=== PATIENT | male | born 1955 | race Hispanic/Latino ===

== ENCOUNTER 2023-07-03 11:01 | Observation (INO) | payer MEDICARE ==
[~2023-07-03] VITALS: Ht 152.4 cm; Wt 55.3 kg
[2023-07-03 11:30] LABS: HEMATOCRIT 36.4 % (42-54); MEAN CORPUSCULAR HEMOGLOBIN 30.5 pg (27.0-33.0); MEAN CORPUSCULAR HGB CONC 34.1 g/dL (32.0-36.0); MEAN CORPUSCULAR VOLUME 89.4 fL (79-99); PLATELET COUNT (AUTO) 143 K/uL (130-400); RED BLOOD CELL COUNT(AUTO) 4.07 MIL/uL (4.50-6.20); RED CELL DISTRIBUTION WIDTH 13.1 % (11.0-15.5); WHITE BLOOD COUNT (AUTO) 6.4 K/uL (4.8-10.8)
[2023-07-03 11:38] LABS: POTASSIUM 4.6 mmol/L (3.5-5.1)
[2023-07-03 11:43] LABS: ALBUMIN 4.1 g/dL (3.5-5.0); BILIRUBIN,TOTAL 0.5 mg/dL (0.2-1.0); TOTAL PROTEIN, SERUM 7.9 g/dL (6.0-8.3)
[2023-07-03 11:47] LABS: BASOPHILS % (MANUAL) 1 % (0-2); LYMPHOCYTES % (MANUAL) 12 % (22-44); MAN.DIFF COMMENT-IMPRESSION MANUAL DIFFERENTIAL; MONOCYTES % (MANUAL) 13 % (2-9); PLATELET MORPHOLOGY COMMENT ADEQUATE; SEGMENTED NEUTROPHILS % 74 % (40-70); TOTAL CELLS COUNTED 100
[2023-07-03] MEDS: 0.9%NACL 1000ML 1,000 ML IV ONE (11:49)
[2023-07-03] MEDS: METOCLOPRAMIDE 10 MG/2 ML VIAL IVP ONE (11:49)
[2023-07-03] MEDS: FAMOTIDINE 20MG VIAL IV ONE (11:49)
[2023-07-03] MEDS: ONDANSETRON 4MG INJ IVP ONE (11:49)
[2023-07-03 12:25] LABS: APPEARANCE,URINE CLEAR (CLEAR); BILIRUBIN,URINE NEGATIVE (NEGATIVE); COLOR,URINE LIGHT-YELLOW (YELLOW); GLUCOSE, URINE (UA) 500 mg/dL (NEGATIVE); KETONES,URINE NEGATIVE (NEGATIVE); LEUKOCYTE ESTERASE ,URINE 250 Leu/uL (NEGATIVE); NITRATE,URINE NEGATIVE (NEGATIVE); OCCULT BLOOD,URINE SMALL (NEGATIVE); PROTEIN,URINE 50 mg/dL (NEGATIVE); UROBILINOGEN,URINE 0.2 mg/dL (0.2-1.0)
[2023-07-03 12:26] LABS: ADD UA MICROSCOPIC YES
[2023-07-03 12:29] LABS: MUCUS,URINE RARE LPF (None Seen); SQUAMOUS EPITHELIAL CELL,UR RARE /HPF (0-2)
[2023-07-03] MEDS: CEFTRIAXONE 1G VIAL IVPB ONE (14:53)
[2023-07-03] MEDS: PANTOPRAZOLE 40 MG/VIAL IVP ONE (14:53)
[2023-07-03] MEDS ORDERED: ACETAMINOPHEN 325 MG TAB PO PRN (15:00)
[2023-07-03 15:10] LABS: HEMATOCRIT 34.1 % (42-54); MEAN CORPUSCULAR HEMOGLOBIN 31.3 pg (27.0-33.0); MEAN CORPUSCULAR HGB CONC 34.3 g/dL (32.0-36.0); MEAN CORPUSCULAR VOLUME 91.2 fL (79-99); PLATELET COUNT (AUTO) 125 K/uL (130-400); RED BLOOD CELL COUNT(AUTO) 3.74 MIL/uL (4.50-6.20); RED CELL DISTRIBUTION WIDTH 13.1 % (11.0-15.5); WHITE BLOOD COUNT (AUTO) 7.3 K/uL (4.8-10.8)
[2023-07-03 15:18] LABS: BASOPHILS # (AUTO) 0.02 K/uL (0.00-0.20); BASOPHILS % (AUTO) 0.3 % (0.0-5.0); EOSINOPHILS # (AUTO) 0.01 K/uL (0.00-0.70); EOSINOPHILS % (AUTO) 0.1 % (0.0-8.0); IMMATURE GRANULOCYTE ABSOLUTE 0.05 K/uL (0-1); LYMPHOCYTES # (AUTO) 1.1 K/uL (1.0-4.8); LYMPHOCYTES % (AUTO) 14.9 % (21.0-51.0); MONOCYTES # (AUTO) 0.7 K/uL (0.1-1.0); MONOCYTES % (AUTO) 10.3 % (3.0-13.0); NEUTROPHILS # (AUTO) 5.2 K/uL (1.8-7.7); NEUTROPHILS % (AUTO) 73.7 % (40.0-77.0)
[2023-07-03 15:27] LABS: HEMOGLOBIN A1C 6.9 % (4.0-6.0)
[2023-07-03] MEDS: ONDANSETRON 4MG INJ IVP PRN (18:06)
[2023-07-03 21:40] VITALS: BP 137/58; PULSE 64; RESP 18
[2023-07-03 22:00] VITALS: O2SAT 98
[2023-07-03] MEDS ORDERED: INSU100V54 SQ (22:14)
[2023-07-03] MEDS ORDERED: TRAZ-185 PO (22:14)
[2023-07-03] MEDS ORDERED: DONE5TAB33 PO (22:14)
[2023-07-03] MEDS ORDERED: MONT-39 PO (22:14)
[2023-07-03] MEDS ORDERED: AMLO-257 PO (22:14)
[2023-07-03] MEDS ORDERED: PARO7.5C2 PO (22:14)
[2023-07-03] MEDS ORDERED: ATOR10TA69 PO (22:14)
[2023-07-03] MEDS ORDERED: OMEP40CA21 PO (22:14)
[2023-07-03] MEDS ORDERED: LORA10TA7 PO (22:14)
[2023-07-04] VITALS (27 sets, daily range): BP systolic 97–181; BP diastolic 41–99; PULSE 58–91; RESP 14–20; O2SAT 97
[2023-07-04 04:24] LABS: BASOPHILS # (AUTO) 0.03 K/uL (0.00-0.20); BASOPHILS % (AUTO) 0.5 % (0.0-5.0); EOSINOPHILS # (AUTO) 0.09 K/uL (0.00-0.70); EOSINOPHILS % (AUTO) 1.6 % (0.0-8.0); HEMATOCRIT 35.6 % (42-54); IMMATURE GRANULOCYTE ABSOLUTE 0.02 K/uL (0-1); LYMPHOCYTES # (AUTO) 1.4 K/uL (1.0-4.8); LYMPHOCYTES % (AUTO) 23.9 % (21.0-51.0); MEAN CORPUSCULAR HEMOGLOBIN 30.7 pg (27.0-33.0); MEAN CORPUSCULAR HGB CONC 34.3 g/dL (32.0-36.0); MEAN CORPUSCULAR VOLUME 89.4 fL (79-99); MONOCYTES # (AUTO) 0.7 K/uL (0.1-1.0); MONOCYTES % (AUTO) 12.9 % (3.0-13.0); NEUTROPHILS # (AUTO) 3.5 K/uL (1.8-7.7); NEUTROPHILS % (AUTO) 60.8 % (40.0-77.0); PLATELET COUNT (AUTO) 144 K/uL (130-400); RED BLOOD CELL COUNT(AUTO) 3.98 MIL/uL (4.50-6.20); RED CELL DISTRIBUTION WIDTH 13.1 % (11.0-15.5); WHITE BLOOD COUNT (AUTO) 5.7 K/uL (4.8-10.8)
[2023-07-04 04:32] LABS: INR <= 0.93 (0.85-1.15); PROTHROMBIN TIME 10.8 SEC (9.6-11.6)
[2023-07-04 04:40] LABS: BILIRUBIN,TOTAL 0.6 mg/dL (0.2-1.0); CREATININE 1.1 mg/dL (0.5-1.3); MAGNESIUM 2.1 mg/dL (1.80-2.40); POTASSIUM 4.1 mmol/L (3.5-5.1); TOTAL PROTEIN, SERUM 7.6 g/dL (6.0-8.3)
[2023-07-04] MEDS: PANTOPRAZOLE 40 MG/VIAL IVP SCH (08:37)
[2023-07-04] MEDS ORDERED: INSU100I24 SQ (08:37)
[2023-07-04] MEDS: CEFTRIAXONE 1G VIAL IVPB SCH (14:00)
[2023-07-04] MEDS ORDERED: PROPOFOL 10 MG/ML 20ML VIAL IV ONE (14:17)
[2023-07-04] MEDS ORDERED: LIDOCAINE PF 100MG/5ML (2%) SYRINGE 5ML ONE (14:17)
[2023-07-04] MEDS ORDERED: TRAZODONE HCL 50 MG TAB PO PRN (18:30)
[2023-07-04] MEDS: PANTOPRAZOLE 40 MG TAB DR PO SCH (21:17)
[2023-07-05 04:00] VITALS: BP 159/87; PULSE 78; RESP 20
[2023-07-05 05:01] LABS: HEMATOCRIT 38.2 % (42-54); MEAN CORPUSCULAR HEMOGLOBIN 30.8 pg (27.0-33.0); MEAN CORPUSCULAR HGB CONC 33.2 g/dL (32.0-36.0); MEAN CORPUSCULAR VOLUME 92.5 fL (79-99); RED BLOOD CELL COUNT(AUTO) 4.13 MIL/uL (4.50-6.20); RED CELL DISTRIBUTION WIDTH 13.2 % (11.0-15.5); WHITE BLOOD COUNT (AUTO) 6.9 K/uL (4.8-10.8)
[2023-07-05 05:12] LABS: MAGNESIUM 2.1 mg/dL (1.80-2.40); POTASSIUM 3.7 mmol/L (3.5-5.1)
[2023-07-05 08:00] VITALS: BP 173/85; PULSE 74; RESP 18
[2023-07-05] MEDS: ATORVASTATIN 10 MG TABLET PO SCH (08:59)
[2023-07-05] MEDS: DONEPEZIL HCL 5 MG TAB PO SCH (08:59)
[2023-07-05] MEDS: PAROXETINE HCL 20 MG TABLET PO SCH (09:00)
[2023-07-05] MEDS: LORATADINE 10 MG TABLET PO SCH (09:00)
[2023-07-05] MEDS: MONTELUKAST SODIUM 10 MG TAB PO SCH (09:00)
[2023-07-05] MEDS: AMLODIPINE 5 MG TAB PO SCH (09:00)
[2023-07-05 09:30] VITALS: O2SAT 96
[2023-07-05 12:00] VITALS: BP 167/83; PULSE 79; RESP 20
[2023-07-05 16:00] VITALS: BP 163/79; PULSE 81; RESP 20
== END 2023-07-05 18:25 | disposition home or self-care (01) ==
LOC: EDH 11:01 → EDHIP 14:55 → INTOOBSV 14:55 → 3BH 21:05 → 3CH 21:37
PROVIDERS: ADMIT Internal Medicine Infectious Disease; ATTEND Internal Medicine Infectious Disease
DX: K92.2 Gastrointestinal hemorrhage, unspecified (principal); K22.10 Ulcer of esophagus without bleeding; K44.9 Diaphragmatic hernia without obstruction or gangrene; N39.0 Urinary tract infection, site not specified; D64.9 Anemia, unspecified; E11.9 Type 2 diabetes mellitus without complications; E78.00 Pure hypercholesterolemia, unspecified; H54.62 Unqualified visual loss, left eye, normal vision right eye; H91.92 Unspecified hearing loss, left ear; R11.2 Nausea with vomiting, unspecified; I10 Essential (primary) hypertension; I69.354 Hemiplegia and hemiparesis following cerebral infarction affecting left non-dominant side; Z79.899 Other long term (current) drug therapy; Z98.890 Other specified postprocedural states; Z79.4 Long term (current) use of insulin
CPT/HCPCS: 96376 ×3; 96361; 96375 ×2; 83036; 83735 ×3; 84484; 80053 ×2; 83690; 85025 ×3; 86850; 86900; 86901; 87088; 82270; 81001; 36415 ×3; 96365; 99291; 93005; 85610; 82948 ×8; 88305; 88312; 76700; 43239; 80048; 85027; J3490; J0696 ×2; J2405 ×2; C9113 ×2; J2765; J2001; J2704; A4620; A4215; A4223; A4222; A4606; G0378 ×6